=== PATIENT | male | born 1970 | race Caucasian/White ===

== ENCOUNTER 2021-09-30 04:25 | Day surgery (SDC) | payer BC ==
[2021-09-25 13:39] VITALS: BMI 27.0
[2021-09-30 12:27] VITALS: RESP 18
[2021-09-30] MEDS ORDERED: MIDAZOLAM HCL 2 MG/2 ML SINGLE DOSE VIAL ONE (15:25)
[2021-09-30] MEDS ORDERED: PROPOFOL 20 ML ONE (15:31)
[2021-09-30 16:33] VITALS: BP 116/84; PULSE 69; TEMP 97.8
== END 2021-09-30 16:40 | disposition home or self-care (01) ==
LOC: JASU-SURG 04:25
PROVIDERS: ATTEND Urology
PROC: 0TF4XZZ Fragmentation in Left Kidney Pelvis, External Approach (ICD-10-PCS; principal; 2021-09-30 14:30)
DX: N20.0 Calculus of kidney (principal)
CPT/HCPCS: 82962